=== PATIENT | female | born 1960 | race Caucasian/White ===

== ENCOUNTER 2022-03-17 12:32 | Inpatient (IN) | payer OTHER ==
[2022-03-17 13:43] VITALS: BMI 26.9
[2022-03-17 13:43] LABS: HEMATOCRIT 40.7 % (32.4-45.2); HEMOGLOBIN 13.7 GM/dL (10.7-15.3); MCH 30.9 pg (25.7-33.7); MCHC 33.5 g/dl (32.0-36.0); MEAN CELL VOLUME 92.1 fl (80-96); MEAN PLT VOLUME 8.5 fl (7.5-11.1); PLATELET COUNT 385 10^3/uL (134-434); RBC 4.42 M/mm3 (3.60-5.2); RDW 15.1 % (11.6-15.6); WHITE BLOOD COUNT 11.4 K/mm3 (4.0-10.0)
[2022-03-17 13:45] LABS: VENOUS BASE EXCESS 0.8 mmol/L (-2-2); VENOUS O2 SATURATION 94.3 % (70-80); VENOUS PH 7.531 (7.310-7.410)
[2022-03-17 13:47] LABS: EPI CELLS 5 /uL (0-25.1); HYALINE CASTS 1 /uL (0-3.1); URINE APPEARANCE CLOUDY; URINE BACTERIA >9,000 /uL (0-1359); URINE BILIRUBIN NEGATIVE (NEGATIVE); URINE COLOR DK YELLOW; URINE GLUCOSE (UA) NEGATIVE (NEGATIVE); URINE KETONE TRACE (NEGATIVE); URINE LEUK ESTERASE TRACE (NEGATIVE); URINE NITRITE NEGATIVE (NEGATIVE); URINE PROTEIN TRACE (NEGATIVE); URINE RBC 32 /uL (0-23.9); URINE WBC 14 /uL (0-25.8)
[2022-03-17 13:50] LABS: PROTHROMBIN TIME (PATIENT) 11.5 SEC (9.7-13.0)
[2022-03-17 13:53] LABS: ACTIVATED PTT 31.9 SECONDS (25.2-36.5)
[2022-03-17 13:59] LABS: CALCIUM 9.5 mg/dL (8.5-10.1)
[2022-03-17 14:00] LABS: ALBUMIN 2.7 g/dl (3.4-5.0)
[2022-03-17 14:03] LABS: CREATININE 0.5 mg/dL (0.55-1.3)
[2022-03-17 14:05] LABS: BILIRUBIN,TOTAL 0.5 mg/dL (0.2-1); TOT PROT 5.8 g/dl (6.4-8.2)
[2022-03-17 14:09] LABS: ANISOCYTOSIS 1+; MACROCYTOSIS 0
[2022-03-17] MEDS ORDERED: CEFTRIAXONE 1 GM in DEXTROSE 5%-WATER - 100 ML IVPB ONE (14:09)
[2022-03-17 14:10] LABS: BLOOD UREA NITROGEN 12.4 mg/dL (7-18)
[2022-03-17 14:20] LABS: URINE CRYSTALS CA OXALATE FEW /hpf
[2022-03-17] MEDS ORDERED: CEFTRIAXONE 1 GM/50 ML BAG ONE (14:57)
[2022-03-17] MEDS ORDERED: ACETAMINOPHEN 325 MG TABLET (FP) PO PRN (14:58)
[2022-03-18] MEDS ORDERED: HEPARIN NA (PORCINE) 5,000 UNITS/ML 1ML VIAL ONE (01:34)
[2022-03-18] MEDS: HEPARIN NA (PORCINE) 5,000 UNITS/ML 1ML VIAL SQ SCH ×3 (01:38→22:09)
[2022-03-18 08:21] LABS: HEMATOCRIT 40.7 % (32.4-45.2); MCH 31.1 pg (25.7-33.7); MCHC 34.4 g/dl (32.0-36.0); MEAN CELL VOLUME 90.5 fl (80-96); MEAN PLT VOLUME 8.4 fl (7.5-11.1); PLATELET COUNT 354 10^3/uL (134-434); RDW 15.6 % (11.6-15.6); WHITE BLOOD COUNT 7.9 K/mm3 (4.0-10.0)
[2022-03-18 08:55] LABS: CALCIUM 8.6 mg/dL (8.5-10.1)
[2022-03-18 08:56] LABS: ALBUMIN 2.6 g/dl (3.4-5.0); BLOOD UREA NITROGEN 10.1 mg/dL (7-18)
[2022-03-18 08:59] LABS: CREATININE 0.3 mg/dL (0.55-1.3)
[2022-03-18 09:00] LABS: BILIRUBIN,TOTAL 0.7 mg/dL (0.2-1)
[2022-03-18 09:01] LABS: TOT PROT 5.6 g/dl (6.4-8.2)
[2022-03-18] MEDS: VALPROATE SODIUM 250 MG/5 ML UNIT DOSE CUP PO SCH (09:38)
[2022-03-18] MEDS: CEFTRIAXONE 1 GM in DEXTROSE 5%-WATER - 50 ML IVPB SCH (09:38)
[2022-03-18] MEDS: DEXAMETHASONE 4 MG TABLET (FP) PO SCH (09:38)
[2022-03-18 09:53] LABS: ANISOCYTOSIS 0; HELMET CELLS 0; HOWELL-JOLLY BODIES 0; MACROCYTOSIS 0; OVALOCYTE 0; ROULEAU 0; SICKELED CELLS 0; TARGET CELLS 0; TEAR DROP CELLS 0; TOXIC GRANULATION 0
[2022-03-19] MEDS: VALPROATE SODIUM 250 MG/5 ML UNIT DOSE CUP PO SCH ×2 (09:35→22:36)
[2022-03-19] MEDS: DEXAMETHASONE 4 MG TABLET (FP) PO SCH ×2 (09:35→22:34)
[2022-03-19] MEDS: CEFTRIAXONE 1 GM in DEXTROSE 5%-WATER - 50 ML IVPB SCH (09:35)
[2022-03-19] MEDS: HEPARIN NA (PORCINE) 5,000 UNITS/ML 1ML VIAL SQ SCH ×2 (09:35→22:37)
[2022-03-19] MEDS ORDERED: ONDANSETRON 4 MG TABLET PO PRN (10:27)
[2022-03-19] MEDS ORDERED: NYSTATIN 500,000 UNITS/5 ML SUSPENSION PO SCH (10:30)
[2022-03-19] MEDS ORDERED: LACOSAMIDE 200 MG TABLET PO SCH (10:30)
[2022-03-19] MEDS: NYSTATIN 500,000 UNITS/5 ML SUSPENSION PO SCH ×3 (11:08→23:00)
[2022-03-19] MEDS: PANTOPRAZOLE 40 MG TABLET PO SCH (11:08)
[2022-03-19] MEDS ORDERED: LACOSAMIDE 100 MG TABLET PO SCH ×2 (14:00→14:30)
[2022-03-19] MEDS: LACOSAMIDE 200 MG TABLET PO SCH ×2 (14:49→22:34)
[2022-03-19] MEDS: SENNOSIDES 8.6MG TABLET (FP) PO SCH (22:34)
[2022-03-20] MEDS: NYSTATIN 500,000 UNITS/5 ML SUSPENSION PO SCH ×4 (06:11→23:02)
[2022-03-20] MEDS: CEFTRIAXONE 1 GM in DEXTROSE 5%-WATER - 50 ML IVPB SCH (10:43)
[2022-03-20] MEDS: PANTOPRAZOLE 40 MG TABLET PO SCH ×2 (10:44→13:11)
[2022-03-20] MEDS: THIAMINE HCL 100 MG TABLET (FP) PO SCH ×2 (10:44→19:18)
[2022-03-20] MEDS: LACOSAMIDE 200 MG TABLET PO SCH ×2 (10:44→22:46)
[2022-03-20] MEDS: FOLIC ACID 1 MG TABLET (FP) PO SCH ×2 (10:44→13:12)
[2022-03-20] MEDS: POLYETHYLENE GLYCOL (HEALTHYLAX) 3350 17 GM PACKET PO SCH ×2 (10:44→19:18)
[2022-03-20] MEDS: VALPROATE SODIUM 250 MG/5 ML UNIT DOSE CUP PO SCH ×2 (10:45→22:46)
[2022-03-20] MEDS: DEXAMETHASONE 4 MG TABLET (FP) PO SCH ×2 (10:45→22:16)
[2022-03-20] MEDS: HEPARIN NA (PORCINE) 5,000 UNITS/ML 1ML VIAL SQ SCH ×2 (10:45→22:14)
[2022-03-20] MEDS: SENNOSIDES 8.6MG TABLET (FP) PO SCH (22:16)
[2022-03-21] MEDS: NYSTATIN 500,000 UNITS/5 ML SUSPENSION PO SCH ×4 (06:34→23:03)
[2022-03-21] MEDS: PANTOPRAZOLE 40 MG TABLET PO SCH (10:44)
[2022-03-21] MEDS: POLYETHYLENE GLYCOL (HEALTHYLAX) 3350 17 GM PACKET PO SCH (10:44)
[2022-03-21] MEDS: THIAMINE HCL 100 MG TABLET (FP) PO SCH (10:44)
[2022-03-21] MEDS: DEXAMETHASONE 4 MG TABLET (FP) PO SCH ×3 (10:44→23:02)
[2022-03-21] MEDS: VALPROATE SODIUM 250 MG/5 ML UNIT DOSE CUP PO SCH ×3 (10:45→23:02)
[2022-03-21] MEDS: HEPARIN NA (PORCINE) 5,000 UNITS/ML 1ML VIAL SQ SCH ×2 (10:45→22:31)
[2022-03-21] MEDS: FOLIC ACID 1 MG TABLET (FP) PO SCH (10:46)
[2022-03-21] MEDS: LACOSAMIDE 200 MG TABLET PO SCH ×3 (10:46→23:04)
[2022-03-21] MEDS ORDERED: LORazepam 2 MG/ML SDV VIAL IM ONE (19:31)
[2022-03-21] MEDS ORDERED: LORazepam 2 MG/ML SDV VIAL IVPUSH ONE (19:45)
[2022-03-21 21:47] LABS: HEMATOCRIT 41.6 % (32.4-45.2); HEMOGLOBIN 14.1 GM/dL (10.7-15.3); MCH 30.8 pg (25.7-33.7); MCHC 33.9 g/dl (32.0-36.0); MEAN CELL VOLUME 90.8 fl (80-96); MEAN PLT VOLUME 8.5 fl (7.5-11.1); PLATELET COUNT 435 10^3/uL (134-434); RBC 4.59 M/mm3 (3.60-5.2); RDW 15.2 % (11.6-15.6); WHITE BLOOD COUNT 15.2 K/mm3 (4.0-10.0)
[2022-03-21 21:59] LABS: ALBUMIN 2.6 g/dl (3.4-5.0); MAGNESIUM 2.2 mg/dL (1.8-2.4)
[2022-03-21 22:02] LABS: CREATININE 0.7 mg/dL (0.55-1.3); PHOSPHOROUS 2.4 mg/dL (2.5-4.9)
[2022-03-21 22:03] LABS: BILIRUBIN,TOTAL 0.7 mg/dL (0.2-1); TOT PROT 6.1 g/dl (6.4-8.2)
[2022-03-21 22:10] LABS: CALCIUM 9.9 mg/dL (8.5-10.1); LACTIC ACID 3.5 mmol/L (0.4-2.0)
[2022-03-21] MEDS: AMPICILLIN - 1 GM in SODIUM CHLORIDE 100 ML IVPB SCH (22:31)
[2022-03-21] MEDS: SENNOSIDES 8.6MG TABLET (FP) PO SCH ×2 (22:31→23:03)
[2022-03-21 22:56] LABS: ANISOCYTOSIS 1+; MACROCYTOSIS 1+; PLATELET ESTIMATE INCREASED
[2022-03-21] MEDS ORDERED: SODIUM CHLORIDE 1,000 ML IV STA (23:15)
[2022-03-21] MEDS ORDERED: LACTATED RINGERS SOLUTION 1,000 ML/1,000 ML INFUS.BAG IV SCH (23:15)
[2022-03-21] MEDS ORDERED: VALPROATE SODIUM 500 MG/5 ML VIAL IVPB ONE (23:17)
[2022-03-21] MEDS ORDERED: Lacosamide 200 MG/20 ML VIAL IVPB ONE (23:18)
[2022-03-21] MEDS ORDERED: DEXAMETHASONE SOD PHOSPHATE 4 MG/1 ML VIAL IVPUSH ONE (23:19)
[2022-03-22 01:21] LABS: LACTIC ACID 4.8 mmol/L (0.4-2.0)
[2022-03-22] MEDS ORDERED: LACTATED RINGERS SOLUTION 1,000 ML/1,000 ML INFUS.BAG IV STA (02:19)
[2022-03-22] MEDS: AMPICILLIN - 1 GM in SODIUM CHLORIDE 100 ML IVPB SCH ×4 (03:33→22:40)
[2022-03-22 05:47] LABS: HEMOGLOBIN 12.2 GM/dL (10.7-15.3); MCH 30.8 pg (25.7-33.7); MCHC 33.1 g/dl (32.0-36.0); MEAN PLT VOLUME 7.9 fl (7.5-11.1); PLATELET COUNT 326 10^3/uL (134-434); RBC 3.98 M/mm3 (3.60-5.2); RDW 15.7 % (11.6-15.6); WHITE BLOOD COUNT 12.5 K/mm3 (4.0-10.0)
[2022-03-22 06:31] LABS: BLOOD UREA NITROGEN 16.1 mg/dL (7-18)
[2022-03-22 06:34] LABS: CALCIUM 8.4 mg/dL (8.5-10.1); CREATININE 0.7 mg/dL (0.55-1.3)
[2022-03-22] MEDS: NYSTATIN 500,000 UNITS/5 ML SUSPENSION PO SCH (06:48)
[2022-03-22 06:57] LABS: ANISOCYTOSIS 3+; MACROCYTOSIS 0; OVALOCYTE 1+; ROULEAU 1+
[2022-03-22] MEDS ORDERED: LORazepam 2 MG/ML SDV VIAL IVPUSH PRN ×3 (09:21→11:53)
[2022-03-22] MEDS ORDERED: DEXAMETHASONE SOD PHOSPHATE 10 MG/1 ML VIAL ONE (09:22)
[2022-03-22] MEDS ORDERED: DEXAMETHASONE SOD PHOSPHATE 4 MG/1 ML VIAL IVPUSH ONE (09:24)
[2022-03-22] MEDS ORDERED: VALPROATE SODIUM 500 MG/5 ML VIAL IVPB SCH ×2 (09:30→22:00)
[2022-03-22] MEDS ORDERED: FUROSEMIDE 40 MG/4 ML INJECTABLE VIAL IVPUSH ONE ×2 (09:31)
[2022-03-22] MEDS ORDERED: Lacosamide 200 MG/20 ML VIAL IVPB SCH (09:45)
[2022-03-22] MEDS ORDERED: VALPROATE SODIUM INJECTION 250 MG in DEXTROSE 5%-WATER - 100 ML IVPB SCH (09:45)
[2022-03-22 10:15] LABS: HEMATOCRIT 35.6 % (32.4-45.2); HEMOGLOBIN 12.4 GM/dL (10.7-15.3); MCH 31.9 pg (25.7-33.7); MCHC 34.7 g/dl (32.0-36.0); MEAN CELL VOLUME 92.1 fl (80-96); MEAN PLT VOLUME 7.6 fl (7.5-11.1); PLATELET COUNT 333 10^3/uL (134-434); RBC 3.87 M/mm3 (3.60-5.2); RDW 15.4 % (11.6-15.6); WHITE BLOOD COUNT 13.7 K/mm3 (4.0-10.0)
[2022-03-22] MEDS: FOLIC ACID 1 MG TABLET (FP) PO SCH (10:17)
[2022-03-22] MEDS: DEXAMETHASONE 4 MG TABLET (FP) PO SCH (10:17)
[2022-03-22] MEDS: POLYETHYLENE GLYCOL (HEALTHYLAX) 3350 17 GM PACKET PO SCH (10:18)
[2022-03-22] MEDS: THIAMINE HCL 100 MG TABLET (FP) PO SCH (10:18)
[2022-03-22] MEDS: PANTOPRAZOLE 40 MG TABLET PO SCH (10:18)
[2022-03-22] MEDS: HEPARIN NA (PORCINE) 5,000 UNITS/ML 1ML VIAL SQ SCH ×2 (10:32→22:41)
[2022-03-22 10:36] LABS: CALCIUM 8.7 mg/dL (8.5-10.1)
[2022-03-22 10:37] LABS: ALBUMIN 2.3 g/dl (3.4-5.0)
[2022-03-22 10:40] LABS: CREATININE 0.5 mg/dL (0.55-1.3)
[2022-03-22 10:41] LABS: BILIRUBIN,TOTAL 0.4 mg/dL (0.2-1); TOT PROT 5.5 g/dl (6.4-8.2)
[2022-03-22] MEDS ORDERED: levETIRAcetam 500 MG/5 ML INJECTION VIAL IVPB SCH (12:00)
[2022-03-22] MEDS ORDERED: levETIRAcetam 500 MG/5 ML INJECTION VIAL IVPB ONE (16:46)
[2022-03-22] MEDS ORDERED: VALPROATE SODIUM 500 MG/5 ML VIAL IVPB ONE (16:46)
[2022-03-22] MEDS ORDERED: Lacosamide 200 MG/20 ML VIAL IVPB ONE (16:47)
[2022-03-22] MEDS ORDERED: VALPROATE SODIUM INJECTION 500 MG in SODIUM CHLORIDE 100 ML IVPB ONE (17:00)
[2022-03-22] MEDS: LORazepam 2 MG/ML SDV VIAL IVPUSH SCH ×3 (17:37→22:41)
[2022-03-22 18:30] LABS: PH,URINE 5.5 (5.0-8.0); URINE APPEARANCE CLOUDY; URINE BILIRUBIN 1+ (NEGATIVE); URINE COLOR DK YELLOW; URINE GLUCOSE (UA) NEGATIVE (NEGATIVE); URINE KETONE 1+ (NEGATIVE); URINE LEUK ESTERASE NEGATIVE (NEGATIVE); URINE NITRITE NEGATIVE (NEGATIVE); URINE PROTEIN TRACE (NEGATIVE)
[2022-03-22] MEDS: VALPROATE SODIUM INJECTION 500 MG in SODIUM CHLORIDE 100 ML IVPB SCH (22:42)
[2022-03-22] MEDS: levETIRAcetam 500 MG/5 ML INJECTION VIAL IVPB SCH (23:37)
[2022-03-23] MEDS: LORazepam 2 MG/ML SDV VIAL IVPUSH SCH ×14 (00:20→23:44)
[2022-03-23] MEDS: AMPICILLIN - 1 GM in SODIUM CHLORIDE 100 ML IVPB SCH ×4 (02:03→22:07)
[2022-03-23] MEDS: levETIRAcetam 500 MG/5 ML INJECTION VIAL IVPB SCH ×2 (09:55→22:53)
[2022-03-23] MEDS: HEPARIN NA (PORCINE) 5,000 UNITS/ML 1ML VIAL SQ SCH (09:56)
[2022-03-23] MEDS: VALPROATE SODIUM INJECTION 500 MG in SODIUM CHLORIDE 100 ML IVPB SCH ×2 (12:24→22:09)
[2022-03-24] MEDS: LORazepam 2 MG/ML SDV VIAL IVPUSH SCH ×11 (01:08→22:47)
[2022-03-24] MEDS: AMPICILLIN - 1 GM in SODIUM CHLORIDE 100 ML IVPB SCH ×4 (03:15→22:39)
[2022-03-24] MEDS: levETIRAcetam 500 MG/5 ML INJECTION VIAL IVPB SCH ×2 (10:41→22:40)
[2022-03-24] MEDS: VALPROATE SODIUM INJECTION 500 MG in SODIUM CHLORIDE 100 ML IVPB SCH ×2 (10:48→22:40)
[2022-03-24] MEDS ORDERED: LORazepam 2 MG/ML SDV VIAL IM ONE (21:41)
[2022-03-25] MEDS ORDERED: VALPROATE SODIUM 500 MG/5 ML VIAL IVPB ONE (00:41)
[2022-03-25] MEDS ORDERED: levETIRAcetam 500 MG/5 ML INJECTION VIAL IVPB ONE (00:42)
[2022-03-25] MEDS: LORazepam 2 MG/ML SDV VIAL IVPUSH SCH ×11 (01:00→21:56)
[2022-03-25] MEDS: AMPICILLIN - 1 GM in SODIUM CHLORIDE 100 ML IVPB SCH ×2 (02:03→09:53)
[2022-03-25 07:34] VITALS: BP 82/45; PULSE 98; RESP 22; TEMP 97.7
[2022-03-25] MEDS: levETIRAcetam 500 MG/5 ML INJECTION VIAL IVPB SCH ×2 (09:54→21:56)
[2022-03-25] MEDS: VALPROATE SODIUM INJECTION 500 MG in SODIUM CHLORIDE 100 ML IVPB SCH ×2 (11:07→21:56)
== END 2022-03-25 20:15 | disposition expired | DRG 872 ==
LOC: JER 12:32 → JERBED 14:23 → J7W 03-18 02:14
PROVIDERS: ADMIT Internal Medicine; ATTEND Internal Medicine
DX: A41.9 Sepsis, unspecified organism (principal); C71.9 Malignant neoplasm of brain, unspecified; N39.0 Urinary tract infection, site not specified; R56.9 Unspecified convulsions; B95.2 Enterococcus as the cause of diseases classified elsewhere
CPT/HCPCS: 0241U-QW; 36415; 71045-TC-FY; 80048; 80053; 80164; 81003; 82550; 82803; 82962; 83605; 83735; 84100; 85025; 85027; 85610; 85730; 87040; 87086; 87186; 93005; 93010; 97116-GP; 97161-GP; 99285-25; G0480; J1100; J1644